=== PATIENT | female | born 1940 | race Two or more races ===

== ENCOUNTER → 2024-12-22 | Outpatient (CLI) | payer MEDICAID | END | disposition home or self-care (01) | LOC: Rad HDHVI 10:55 | PROVIDERS: ATTEND Internal Medicine Cardiovascular Disease | DX: R06.02 Shortness of breath (principal) | CPT/HCPCS: 93306 ==

== ENCOUNTER → 2024-12-29 | Outpatient (CLI) | payer MEDICAID ==
[~2024-12-29] VITALS: Ht 152.4 cm; Wt 72.6 kg
[~2024-12-29] MED LIST: ADENOSINE 61 MG in GIVE UN-DILUTED 0 ML IV ONE; ADENOSINE 90 MG/30 ML INJ IV ONE
== END | disposition home or self-care (01) ==
LOC: Rad HDHVI 08:51
PROVIDERS: ATTEND Internal Medicine Cardiovascular Disease
DX: R06.02 Shortness of breath (principal); R42 Dizziness and giddiness; R07.89 Other chest pain; R94.31 Abnormal electrocardiogram [ECG] [EKG]; R60.0 Localized edema; I10 Essential (primary) hypertension
CPT/HCPCS: 78452; 93005; A9500; J0153; 96374; 96375

== ENCOUNTER 2025-06-15 15:46 | Outpatient (CLI) | payer MEDICAID | END 2025-06-15 17:00 | disposition home or self-care (01) | LOC: Rad HDHVI 15:46 | PROVIDERS: ATTEND Internal Medicine Cardiovascular Disease | DX: I10 Essential (primary) hypertension (principal) | CPT/HCPCS: 93880 ==

== ENCOUNTER 2025-10-20 01:19 | Inpatient (IN) | payer MEDICAID ==
[~2025-10-20] VITALS: Ht 152.4 cm; Wt 77.0 kg
[2025-10-20] MEDS: SODIUM CHLORIDE 0.9% 1,000 ML IV ONE (02:35)
[2025-10-20 02:40] LABS: Hematocrit 45.9 % (36.0-46.0); Hemoglobin 15.2 g/dL (12.2-16.2); Mean Corpuscular Hemoglobin 30.1 pg (28.0-32.0); Mean Corpuscular Volume 90.9 fL (80.0-100.0); Nucleated Red Blood Cells % 0.0 %
[2025-10-20 02:47] LABS: Chloride 107 mmol/L (98-107); Potassium 4.0 mmol/L (3.5-5.1); Sodium 143 mmol/L (136-145)
[2025-10-20 02:48] LABS: Anion Gap 12 (5-15); Calcium 9.6 mg/dL (8.7-10.4); Carbon Dioxide 24 mmol/L (20-31)
[2025-10-20 02:53] LABS: BUN/Creatinine Ratio 24.2 (10.0-20.0); Blood Urea Nitrogen 22 mg/dL (9-23)
[2025-10-20 02:54] LABS: Glucose 173 mg/dL (74-106)
[2025-10-20 03:55] LABS: INR 1.01 (0.9-1.15); Prothrombin Time 10.7 sec (9.3-11.8)
--- NOTE | 2025-10-20 04:34 | DVH ---
CHEST RADIOGRAPH INDICATION: Hypoxia TECHNIQUE: Single frontal view of the chest was obtained COMPARISON: XY CHEST TWO VIEWS ROUTINE on DOS: 12/17/24 FINDINGS: Lines and Tubes: None Lungs: Moderate diffuse increased prominence of the pulmonary vasculature without evidence of focal consolidation. Pleura: No effusion. No pneumothorax. Cardiomediastinal contours: Unremarkable Bones: Unremarkable IMPRESSION: 1. Moderate diffuse increased prominence of the pulmonary vasculature without evidence of focal consolidation.
[2025-10-20 04:38] LABS: Base Excess -3.7 mmol/L (-2.0-3.0)
--- NOTE | 2025-10-20 04:55 | ED.PDOC ---
History of Present Illness HPI Comments 85-year-old, Sami-speaking female is brought in by ambulance for chief complaint of syncope. Granddaughter is present at bedside. Per granddaughter, patient is complaining of chest pain, dizziness, and weakness, earlier, while at a [employer]. Patient was assisted to the bathroom and witnessed passing out. Significant history for stroke, hypertension, and thyroid disease. Patient arrived on non-rebreather after being found on 84% on room air by EMS personnel. Patient's sternal endorses on feeling weak. REVIEW OF SYSTEMS: General: No fever, no chills, or fatigue HEENT: No sore throat, no earache, no congestion, no neck pain. Cardiac: Syncope. No chest pain. No palpitations. Lungs: No shortness of breath, no cough. GI: No nausea, no vomiting, no diarrhea, no constipation, no abdominal pain : No dysuria, frequency, or urgency. No hematuria. Musculoskeletal: No joint pain , no joint swelling, no extremity edema. Skin: No rash, no itching. Neuro: Weakness. No headache or dizziness. (And as stated in HPI) PHYSICAL EXAM: General: Awake, alert and oriented. No acute distress. Skin: Skin in warm, dry and intact. Appropriate color for ethnicity. HEENT: The head is normocephalic and atraumatic. Conjunctivae are clear without exudates or hemorrhage. Sclera is non-icteric. Eyelids are normal in appearance without swelling or lesions. Oral mucosa is pink and moist Neck: The neck is supple with normal range of motion. No JVD. Cardiac: Heart rate and rhythm are normal. No murmurs, gallops, or rubs are auscultated. Respiratory: No signs of respiratory distress. Lung sounds are clear in all lobes bilaterally without rales, rhonchi, or wheezes. Abdominal: Abdomen is soft, non-tender without distention, guarding or rigidity. Bowel sounds are present and normoactive in all four quadrants. Extremities: Lower extremities without edema. Neurological: Patient appears lethargic. She responds to commands. Generally is weak but was able to move all 4 extremities, spontaneously. Chief Complaint: Syncope Time Seen by MD: 01:49 Allergies: Coded Allergies: No Known Drug Allergy (Verified Allergy, Unknown, 12/29/24) Mode of Arrival: EMS Past Medical History PAST MEDICAL HISTORY: Arthritis, HTN, Thyroid Past Medical History (Other): History of stroke Surgical History: Denies all surgeries FOUNDATION RELATIONS DIRECTOR History: Denies all FOUNDATION RELATIONS DIRECTOR Hx Family History Family History: Unknown Social History Smoker: Non-Smoker Alcohol: Denies ETOH Use Drugs: Denies Drug Use Lives In: Home Was a procedure done? Was a procedure done?: No Differential Dx Considerations may include: Differential diagnoses considered include but are not limited to cardiac structural disease, arrhythmia, acute coronary syndrome, orthostasis, pulmonary embolism, dissection, seizure, basilar stroke, other. X-Ray, Labs, Meds, VS Vital Signs Date Time Temp Pulse Resp B/P (MAP) Pulse Ox O2 Delivery O2 Flow Rate FiO2 10/20/25 04:00 67 16 115/71 (86) 97 10/20/25 01:50 Non-Rebreather 15 N/A 10/20/25 01:50 97.7 92 19 105/60 (75) 95 97.7 10/20/25 01:30 96.4 88 16 161/68 98 96.4 Lab Test 10/20/25 05:06 10/20/25 04:18 10/20/25 03:22 10/20/25 02:04 Range/Units Sodium Level 143 143 136-145 mmol/L Potassium Level 4.2 4.0 3.5-5.1 mmol/L Chloride Level 110 H 107 98-107 mmol/L Carbon Dioxide Level 23 24 20-31 mmol/L Anion Gap 10 12 5-15 Blood Urea Nitrogen 27 H 22 9-23 mg/dL Creatinine 0.82 0.91 0.550-1.02 mg/dL Glomerular Filtration Rate Calc 70 62 >90 mL/min BUN/Creatinine Ratio 32.9 H 24.2 H 10.0-20.0 Serum Glucose 131 H 173 H 74-106 mg/dL Calcium Level 8.8 9.6 8.7-10.4 mg/dL Total Bilirubin 0.7 0.2-1.0 mg/dL Aspartate Amino Transferase (AST) 29 13-40 U/L Alanine Aminotransferase (ALT) 31 7-40 U/L Alkaline Phosphatase 109 46-116 U/L Troponin I High Sensitivity 4 5 5 </=34 ng/L Total Protein 5.9 5.7-8.2 g/dL Albumin 3.7 3.2-4.8 g/dL Thyroid Stimulating Hormone (TSH) 5.24 H 0.55-4.78 uIU/mL Blood Gas Specimen Type Arterial Blood Gas Sample Site Right radial Blood Gas Patient Temperature 37.0 Arterial Blood Date Drawn [id number] Arterial Blood pH 7.443 7.350-7.450 Arterial Blood Partial Pressure CO2 28.3 L 32.0-45.0 mmHg Arterial Blood Partial Pressure O2 52.8 *L 83.0-108.0 mmHg Arterial Blood HCO3 18.9 L 21.0-28.0 mmol/L Arterial Blood Oxygen Saturation 86.4 L 94.0-98.0 % Arterial Blood Base Excess -3.7 L -2.0-3.0 mmol/L Arterial Blood Oxyhemoglobin 85.4 L 94.0-98.0 % Arterial Blood Carboxyhemoglobin 0.8 0.5-1.5 % Arterial Blood Methemoglobin 0.4 0.0-1.5 % Arterial Blood Deoxyhemoglobin 13.4 H 0.0-5.0 % Rodolfo Test Yes Blood Gas Total Hemoglobin 14.70 12.0-16.0 g/dL Blood Gas Modality Room air Blood Gas Spontaneous Rate 18 FiO2 % 21.0 Blood Gas Critical Value Read Back yes Blood Gas Notified Whom md. france molina Blood Gas Notified Time [id number] Blood Gas Notified By bank boss tyson rehman White Blood Count 12.2 H 4.4-10.8 10^3/uL Red Blood Count 5.05 4.0-5.20 10^6/uL Hemoglobin 15.2 12.2-16.2 g/dL Hematocrit 45.9 36.0-46.0 % Mean Corpuscular Volume 90.9 80.0-100.0 fL Mean Corpuscular Hemoglobin 30.1 28.0-32.0 pg Mean Corpuscular Hemoglobin Concent 33.1 32.0-36.0 g/dL Red Cell Distribution Width 16.2 H 11.8-14.3 % Platelet Count 219 140-450 10^3/uL Mean Platelet Volume 10.4 6.9-10.8 fL Neutrophils (%) (Auto) 86.0 H 37.0-80.0 % Lymphocytes (%) (Auto) 10.0 10.0-50.0 % Monocytes (%) (Auto) 3.4 0.0-12.0 % Eosinophils (%) (Auto) 0.4 0.0-7.0 % Basophils (%) (Auto) 0.2 0.0-2.0 % Neutrophils # (Auto) 10.5 H 1.6-8.6 10 ^3/uL Lymphocytes # (Auto) 1.2 0.4-5.4 10 ^3/uL Monocytes # (Auto) 0.4 0-1.3 10 ^3/uL Eosinophils # (Auto) 0 0-0.8 10 ^3/uL Basophils # (Auto) 0 0-0.2 10 ^3/uL Nucleated Red Blood Cells 0.0 % Prothrombin Time 10.7 9.3-11.8 sec Prothrombin Time INR 1.01 0.9-1.15 D-Dimer, Quantitative 0.58 H 0.0-0.49 mg/L FEU Hemoglobin A1c 6.0 H <5.7 % A1C B-Type Natriuretic Peptide 66.91 0-100 pg/mL Current Medications Medications (Trade) Dose Ordered Sig/Ryan Route Start Time Stop Time Status Last Admin Sodium Chloride 1,000 ml @ 1,000 mls/hr Q1H ONCE IV 10/20/25 02:00 10/20/25 02:59 DC 10/20/25 02:35 Aspirin 162 mg ONCE ONCE PO 10/20/25 05:30 10/20/25 05:35 DC 10/20/25 05:53 Ceftriaxone Sodium 50 ml @ 100 mls/hr ONCE ONCE IV 10/20/25 05:30 10/20/25 06:00 DC 10/20/25 05:53 [place] [id number] Ph: [phone] DIAGNOSTIC IMAGING Diagnostic Imaging Report : [id number] Signed PATIENT: JACQUES SHAFFER ACCT: [id number] UNIT: [id number] : 1940 LOC: ER ROOM / BED: / AGE / SEX: 85 / F ADM STATUS: REG ER SERVICE [id number] ORDERING PHYSICIAN: LAXMI MOLINA MD PROCEDURE(s): CXR1 - CHEST XRAY 1 VIEW REASON: Hypoxia ORDER NUMBER(s): [id number], ACCESSION NUMBER(s): [id number] CHEST RADIOGRAPH INDICATION: Hypoxia TECHNIQUE: Single frontal view of the chest was obtained COMPARISON: XY CHEST TWO VIEWS ROUTINE on DOS: 12/17/24 FINDINGS: Lines and Tubes: None Lungs: Moderate diffuse increased prominence of the pulmonary vasculature without evidence of focal consolidation. Pleura: No effusion. No pneumothorax. Cardiomediastinal contours: Unremarkable Bones: Unremarkable IMPRESSION: 1. Moderate diffuse increased prominence of the pulmonary vasculature without evidence of focal consolidation. ATED BY: ROBBY GARRIDO MD DICTATED DATE/TIME: 10/20/25430 SIGNED BY: ROBBY GARRIDO MD SIGNED DATE/TIME: 10/20/25430 CC: Time of 1ST Reevaluation: 04:54 Reevaluation 1ST: Unchanged Patient Education/Counseling: Other (Need for hospital admission) Family Education/Counseling: Other (Need for hospital admission) SEPSIS Sepsis Screen Date sepsis recognized/suspect: Oct 20, 2025 Time Sepsis recognized/suspect: 015 Recent Procedure: No On Antibiotic Therapy: No Respiratory Rate >20: No Heart Rate >90: Yes Temp<36 C (96.8 F) or >38.3 C: No SBP <90 or MAP <65 mmHG: No New Acute Mental Status Change: No Is the patient on CPAP, BIPAP,: No Physician Orders Electrocardigram (10/20/25 01:54) Claims Attorney (10/20/25 ) Orthostatic Vital Signs (10/20/25 ) Saline Lock (10/20/25 01:54) Fall Precautions Initiated (10/20/25 01:54) Electrocardigram (10/20/25 02:54) Electrocardigram (10/20/25 04:54) Chest Xray 1 View (10/20/25 03:29) Abg W/ Co-Ox (10/20/25 04:07) Aspirin Chewable Tablet (10/20/25 10:00) Ceftriaxone 1gm/50ml (Rocephin) (10/20/25 09:00) Allergies (10/20/25 05:22) Code Status (10/20/25 05:22) Sodium Chloride Lock (Saline Lock Ns) (10/20/25 06:00) Oxygen Per Hour (10/20/25 05:22) Hydrocodone-Acet 5/325mg Tab ([place] 5/32 (10/20/25 05:30) Ondansetron Hcl (Zofran) (10/20/25 05:30) Docusate Sodium Capsule (Colace Capsule) (10/20/25 05:30) Fall Risk Precautions In Place QSHIFT (10/20/25 05:22) Complete Blood Count (10/21/25 04:00) Comprehensive Metabolic Panel (10/21/25 04:00) Cardiac Diet-2gna,Lofat,Lochol (10/20/25 Breakfast) Condition: Serious (10/20/25 05:22) Acetaminophen Tablet (Tylenol Tablet) (10/20/25 05:30) Maintain Bed Rest (10/20/25 05:22) Sequential Compression Device (10/20/25 ) Atorvastatin (Lipitor) (10/20/25 22:00) Levothyroxine Tablet (Synthroid Tablet) (10/20/25 06:00) Admit (10/20/25 05:51) Nitroglycerin Sublingual (Ntrostat Subli (10/20/25 06:00) Morphine Sulfate Injection (10/20/25 06:00) Stat Ekg For Chest Pain (10/20/25 05:51) Notify Md Of Changes From Base (10/20/25 05:51) Psychiatry Resident For 24 Hours (10/20/25 05:51) Emergency Dysrhythmia Protocol (10/20/25 05:51) Rhythm Strips Once Every Shift (10/20/25 05:51) Oxygen By Nasal Cannula (10/20/25 05:51) Ct Angio Chest Contrast (10/20/25 05:28) Vital Signs Date Time Temp Pulse Resp B/P (MAP) Pulse Ox O2 Delivery O2 Flow Rate FiO2 10/20/25 04:00 67 16 115/71 (86) 97 10/20/25 01:50 Non-Rebreather 15 N/A 10/20/25 01:50 97.7 92 19 105/60 (75) 95 97.7 10/20/25 01:30 96.4 88 16 161/68 98 96.4 Laboratory Tests Test 10/20/25 02:04 White Blood Count 12.2 10^3/uL (4.4-10.8) H Medications Medications Dose Ordered Sig/Ryan Route Start Time Stop Time Status Last Admin Dose Admin Aspirin 162 mg ONCE ONCE PO 10/20/25 05:30 10/20/25 05:35 DC 10/20/25 05:53 Ceftriaxone Sodium 50 ml @ 100 mls/hr ONCE ONCE IV 10/20/25 05:30 10/20/25 06:00 DC 10/20/25 05:53 Sodium Chloride 1,000 ml @ 1,000 mls/hr Q1H ONCE IV 10/20/25 02:00 10/20/25 02:59 DC 10/20/25 02:35 Departure 1 Departure Time of Disposition: 04:54 Impression: Primary Impression: Syncope Additional Impression: Hypoxia Disposition: ADMITTED INPATIENT Condition: Stable Comments MDM: 85-year-old female who presents to the emergency department after syncopal episode. She is found to be hypoxic (88% on room air) chest x-ray suggestive of possible congestive changes. Patient admitted to hospitalist service for further treatment, evaluation and monitoring. Extensive evaluation was performed in attempt to identify or rule out: (See differential diagnosis section) The following tests were ordered, and results were reviewed by me and discussed with patient: (See diagnostic results section) The following test were independently interpreted by me: Prothrombin time with reflux, D-dimer, troponin, EKG, BMP CBC, BNP I reviewed and agreed with the following test results read by other providers: Chest x-ray I reviewed the following notes from the pt's past medical encounters: N/A Additional information was gathered from interviewing the following independent historians: N/A Discussion of management or test interpretation with external physician/other qualified health wound care nurse: N/A Addressed [ ]one or more chronic illnesses with severe exacerbation, progression, or side effects of treatment: [ ]an acute or chronic illness that poses a threat to life or bodily function: [ ] Decision regarding hospitalization or escalation of hospital level of care: Risk and benefits of admission for further treatment of patient's condition was considered. Due to patient's current clinical condition, high risk of decline and poor outcome if discharged and need for further inpatient management and monitoring, patient will be admitted to the hospital. Drug therapy requiring intensive monitoring for toxicity: N/A Parenteral controlled substances: N/A Decision regarding elective major surgery with identified patient or procedure risk factors: N/A Decision regarding emergency major surgery: N/A Decision not to resuscitate or to de-escalate care because of poor prognosis: N/A Diagnosis or treatment significantly limited by social determinants of health: N/A Decision regarding hospitalization or escalation of hospital level of care: Risks and benefits of admission for further treatment of patient's condition was considered however due to patient's stable condition patient will be discharged to follow up closely or return to care for worsening of condition or inability to follow up. Critical Care Note Critical Care Time?: No Stability Stability form required: No Heart Score Heart Score: Heart Score Response (Comments) Value History N/A 0 EKG N/A 0 Age N/A 0 Risk Factors N/A 0 Troponin N/A 0 Total 0 I personally scribed for LAXMI MOLINA MD ([email or web address]) on 10/20/25 at 06:31. Electronically submitted by Larry Tsang ([email or web address]). LAXMI MOLINA MD Oct 20, 2025 04:55
[2025-10-20] MEDS ORDERED: ONDANSETRON HCL 4 MG/2 ML VIAL IV PRN (05:30)
[2025-10-20] MEDS ORDERED: HYDROcodone-ACET 5/325MG TAB PO PRN (05:30)
[2025-10-20] MEDS ORDERED: IPRATROPIUM BROM 0.5 MG/2.5ML INH SOL NEB PRN (05:30)
[2025-10-20] MEDS ORDERED: ACETAMINOPHEN 325 MG TAB PO PRN (05:30)
[2025-10-20] MEDS ORDERED: ALBUTEROL SULF 2.5 MG/0.5ML(0.5%) NEB SOLN NEB PRN (05:30)
[2025-10-20] MEDS ORDERED: DOCUSATE SOD 100 MG CAP PO PRN (05:30)
--- NOTE | 2025-10-20 05:52 | DVHHP2 ---
History of Present Illness Reason for Visit: Syncope History of Present Illness The patient is a 85-year-old female with past medical history of hypothyroidism, stroke, hypertension, diabetes mellitus, and arthritis who presented to [facility] ED for evaluation of syncopal episode. As reported by granddaughter, patient filled dizziness, complaining of chest pain, generalized weakness while at [place] [employer]. Patient was assisted to the bathroom and witnessed passing out. When EMS arrived on the scene, patient was awake, O2 saturation was 83% and was placed on non-rebreather EN route to our facility ED. Patient was seen and evaluated in the ED, laboratory data shows WBC 12.2, platelets 219, sodium 143, potassium 4.0, BUN 22, creatinine 0.91, GFR 62, glucose 173, hemoglobin A1c 6.0, D-dimer 0.58, TSH 5.24, calcium 9.6, BNP 66.91, blood pressure 105/60, heart rate 92, temperature 97.7 F, O2 saturation 95% on oxygen. CT Angiography showed no pulmonary embolism, no acute thoracic finding. Please see medication orders section in the computer. On my assessment, patient denied chest pain, no headache, dizziness, diaphoresis, currently on oxygen, no diarrhea, nausea, vomiting, fever, no chills. Patient was admitted for further evaluation and medical management. Past Medical History DM, Arthritis, HTN, Thyroid, Stroke Past Surgical History Denies all surgeries Family History Reviewed, noncontributory to the management of this case. Past Social History The patient lives at home, denies smoking, alcohol or illicit drugs abuse. Review of Systems Constitutional: Yes: Weakness; No: Fever, Chills, Sweats, Malaise, Other Eyes: No: Pain, Vision change, Conjunctivae inflammation, Eyelid inflammation, Other, Redness ENT: No: Ear pain, Ear discharge, Nose pain, Nose discharge, Nose congestion, Mouth pain, Mouth swelling, Throat pain, Throat swelling, Other Respiratory: No: Cough, Dry, Shortness of breath, SOB with excertion, Wheezing, Hemoptysis, Pleuritic Pain, Sputum, Wheezing, Other Cardiovascular: Other (Syncope); No: Chest Pain, Palpitations, Orthopnea, Paroxysmal Noc. Dyspnea, Edema, Lt Headedness Gastrointestinal: No: Nausea, Vomiting, Abdominal Pain, Diarrhea, Constipation, Melena, Hematochezia, Other Genitourinary: No Dysuria, No Frequency, No Incontinence, No Hematuria, No Retention, No Other Musculoskeletal: No: other, neck pain, shoulder pain, arm pain, back pain, hand pain, leg pain, foot pain Skin: No: Rash, Lesions, Jaundice, Bruising, Other Neurological: No: Weakness, Numbness, Incoordination, Change in speech, Confusion, Seizures, Other Allergies: Coded Allergies: No Known Drug Allergy (Verified Allergy, Unknown, 12/29/24) Medications Current Medications Medications Dose Ordered Sig/Ryan Route Start Time Stop Time Status Last Admin Dose Admin Aspirin 81 mg DAILY PO 10/20/25 10:00 Ceftriaxone Sodium 50 ml @ 100 mls/hr DAILY@09 IV 10/20/25 09:00 Albuterol 2.5 mg Q4HPRN PRN NEB 10/20/25 05:30 Cancel Ipratropium [place] 0.5 mg Q4HPRN PRN NEB 10/20/25 05:30 Cancel Sodium Chloride 10 ml Q8HR IV 10/20/25 06:00 Acetaminophen/ Hydrocodone Bitart 1 tab Q4HP PRN PO 10/20/25 05:30 Ondansetron HCl 4 mg Q4HP PRN IV 10/20/25 05:30 Docusate Sodium 100 mg BIDPRN PRN PO 10/20/25 05:30 Acetaminophen 650 mg Q6HP PRN PO 10/20/25 05:30 Atorvastatin Calcium 20 mg HS PO 10/20/25 22:00 Levothyroxine Sodium 50 mcg QAM@0600 PO 10/20/25 06:00 Exam Vital Signs Vital Signs Date Time Temp Pulse Resp B/P (MAP) Pulse Ox O2 Delivery O2 Flow Rate FiO2 10/20/25 01:50 Non-Rebreather 15 N/A 10/20/25 01:50 97.7 92 19 105/60 (76) 95 97.7 General Appearance: Alert, Oriented X3, Cooperative, No acute distress HEENT: Atraumatic, PERRLA, EOMI, Mucous membr. moist/pink Respiratory: Clear to auscultation, Normal air movement Cardiovascular: Regular rate, Normal S1, Normal S2, No murmurs Abdominal: Normal bowel sounds, Soft, No tenderness, No hepatospenomegaly, No masses Extremities: No clubbing, No cyanosis, No edema, Normal pulses, No tenderness/swelling Skin: No rashes, No significant lesion Neuro: Normal speech, Normal tone, Sensation intact, Cranial nerves 3-12 NL, Reflexes 2+, Other (Generalized weakness) Psych/Mental Status: Mental status NL, Mood NL Labs/Xrays Labs Test 10/20/25 05:06 10/20/25 04:18 10/20/25 02:04 Range/Units Troponin I High Sensitivity 4 </=34 ng/L Blood Gas Specimen Type Arterial Blood Gas Sample Site Right radial Blood Gas Patient Temperature 37.0 Arterial Blood Date Drawn [id number] Arterial Blood pH 7.443 7.350-7.450 Arterial Blood Partial Pressure CO2 28.3 L 32.0-45.0 mmHg Arterial Blood Partial Pressure O2 52.8 *L 83.0-108.0 mmHg Arterial Blood HCO3 18.9 L 21.0-28.0 mmol/L Arterial Blood Oxygen Saturation 86.4 L 94.0-98.0 % Arterial Blood Base Excess -3.7 L -2.0-3.0 mmol/L Arterial Blood Oxyhemoglobin 85.4 L 94.0-98.0 % Arterial Blood Carboxyhemoglobin 0.8 0.5-1.5 % Arterial Blood Methemoglobin 0.4 0.0-1.5 % Arterial Blood Deoxyhemoglobin 13.4 H 0.0-5.0 % Rodolfo Test Yes Blood Gas Total Hemoglobin 14.70 12.0-16.0 g/dL Blood Gas Modality Room air Blood Gas Spontaneous Rate 18 FiO2 % 21.0 Blood Gas Critical Value Read Back yes Blood Gas Notified Whom md. france molina Blood Gas Notified Time [id number] Blood Gas Notified By visitor service assistant tyson rehman White Blood Count 12.2 H 4.4-10.8 10^3/uL Red Blood Count 5.05 4.0-5.20 10^6/uL Hemoglobin 15.2 12.2-16.2 g/dL Hematocrit 45.9 36.0-46.0 % Mean Corpuscular Volume 90.9 80.0-100.0 fL Mean Corpuscular Hemoglobin 30.1 28.0-32.0 pg Mean Corpuscular Hemoglobin Concent 33.1 32.0-36.0 g/dL Red Cell Distribution Width 16.2 H 11.8-14.3 % Platelet Count 219 140-450 10^3/uL Mean Platelet Volume 10.4 6.9-10.8 fL Neutrophils (%) (Auto) 86.0 H 37.0-80.0 % Lymphocytes (%) (Auto) 10.0 10.0-50.0 % Monocytes (%) (Auto) 3.4 0.0-12.0 % Eosinophils (%) (Auto) 0.4 0.0-7.0 % Basophils (%) (Auto) 0.2 0.0-2.0 % Neutrophils # (Auto) 10.5 H 1.6-8.6 10 ^3/uL Lymphocytes # (Auto) 1.2 0.4-5.4 10 ^3/uL Monocytes # (Auto) 0.4 0-1.3 10 ^3/uL Eosinophils # (Auto) 0 0-0.8 10 ^3/uL Basophils # (Auto) 0 0-0.2 10 ^3/uL Nucleated Red Blood Cells 0.0 % Prothrombin Time 10.7 9.3-11.8 sec Prothrombin Time INR 1.01 0.9-1.15 D-Dimer, Quantitative 0.58 H 0.0-0.49 mg/L FEU B-Type Natriuretic Peptide 66.91 0-100 pg/mL PATIENT: JACQUES SHAFFERACCT: [id number] UNIT: [id number] : 1940 LOC: OVERFLOW ROOM / BED: [address] [place] [address] AGE / SEX: 85 / F ADM STATUS: ADM IN SERVICE 0528 ORDERING PHYSICIAN: ALEA DESHPANDE DNP PROCEDURE(s): CTACH - CT ANGIO CHEST CONTRAST REASON: Elevated D-dimer ORDER NUMBER(s): [id number], ACCESSION NUMBER(s): [id number] CTA Chest with intravenous contrast INDICATION: Elevated D-dimer COMPARISON: XY CHEST XRAY 1 VIEW on DOS: 10/20/25, XY CHEST TWO VIEWS ROUTINE on DOS: 12/17/24 TECHNIQUE: Multidetector spiral CTA of the chest was performed of the chest with intravenous contrast. PULMONARY ANGIOGRAPHY PROTOCOL was utilized using a bolus- tracking technique centered on the main pulmonary artery. Axial, coronal and sagittal multiplanar and MIP reformats were performed. Radiation Dose : 1. Chest: CTDI volume is 22.14 mGy. Dose-length product is 679.76 mGy*cm The dose indicators for CT are the volume Computed Tomography (CT) Dose Index (CTDIvol) and the Dose Length Product (DLP), and are measured in units of mGy and mGy-cm, respectively. These indicators are not patient dose, but values generated from the CT scanner acquisition factors. The report includes radiation exposure data for exposures received during this examination. FINDINGS: Pulmonary artery: No pulmonary embolism. Lower neck: Normal thyroid. Lungs: No focal consolidation, pleural effusion or pneumothorax. Moderate posterior bibasilar atelectasis. Heart/Vascular Structures: Normal heart size. No pericardial effusion. Atheroscl erotic vascular calcifications. Lymph Nodes: No adenopathy Musculoskeletal: No acute osseous abnormality. Soft tissues: Normal. Upper abdomen: 2.3 cm calcified gallstone within the neck of the gallbladder. Limited portions of the upper abdomen are otherwise unremarkable. IMPRESSION: 1. No pulmonary embolism. 2. No acute thoracic finding. 3. Cholelithiasis. ORDERING PHYSICIAN: LAXMI MOLINA MD PROCEDURE(s): CXR1 - CHEST XRAY 1 VIEW REASON: Hypoxia ORDER NUMBER(s): [id number], ACCESSION NUMBER(s): [id number] CHEST RADIOGRAPH INDICATION: Hypoxia TECHNIQUE: Single frontal view of the chest was obtained COMPARISON: XY CHEST TWO VIEWS ROUTINE on DOS: 12/17/24 FINDINGS: Lines and Tubes: None Lungs: Moderate diffuse increased prominence of the pulmonary vasculature without evidence of focal consolidation. Pleura: No effusion. No pneumothorax. Cardiomediastinal contours: Unremarkable Bones: Unremarkable IMPRESSION: 1. Moderate diffuse increased prominence of the pulmonary vasculature without evidence of focal consolidation. SEPSIS Sepsis Screen Date sepsis recognized/suspect: Oct 20, 2025 Time Sepsis recognized/suspect: 0155 Recent Procedure: No On Antibiotic Therapy: No Respiratory Rate >20: No Heart Rate >90: Yes Temp<36 C (96.8 F) or >38.3 C: No SBP <90 or MAP <65 mmHG: No New Acute Mental Status Change: No Is the patient on CPAP, BIPAP,: No Physician Orders Electrocardigram (10/20/25 01:54) Coal Cager (10/20/25 ) Orthostatic Vital Signs (10/20/25 ) Saline Lock (10/20/25 01:54) Fall Precautions Initiated (10/20/25 01:54) Electrocardigram (10/20/25 02:54) Electrocardigram (10/20/25 04:54) Chest Xray 1 View (10/20/25 03:29) Abg W/ Co-Ox (10/20/25 04:07) Complete Blood Count (10/20/25 05:22) Comprehensive Metabolic Panel (10/20/25 05:22) Aspirin Chewable Tablet (10/20/25 10:00) Hemoglobin A1c (10/20/25 05:22) Ceftriaxone 1gm/50ml (Rocephin) (10/20/25 09:00) Ceftriaxone 1gm/50ml (Rocephin) (10/20/25 05:30) Allergies (10/20/25 05:22) Code Status (10/20/25 05:22) Sodium Chloride Lock (Saline Lock Ns) (10/20/25 06:00) Oxygen Per Hour (10/20/25 05:22) Hydrocodone-Acet 5/325mg Tab ([place] 5/32 (10/20/25 05:30) Ondansetron Hcl (Zofran) (10/20/25 05:30) Docusate Sodium Capsule (Colace Capsule) (10/20/25 05:30) Fall Risk Precautions In Place QSHIFT (10/20/25 05:22) Complete Blood Count (10/21/25 04:00) Comprehensive Metabolic Panel (10/21/25 04:00) Cardiac Diet-2gna,Lofat,Lochol (10/20/25 Breakfast) Condition: Serious (10/20/25 05:22) Acetaminophen Tablet (Tylenol Tablet) (10/20/25 05:30) Maintain Bed Rest (10/20/25 05:22) Sequential Compression Device (10/20/25 ) Atorvastatin (Lipitor) (10/20/25 22:00) Levothyroxine Tablet (Synthroid Tablet) (10/20/25 06:00) Thyroid Stimulating Hormone (10/20/25 05:22) Chest Without Contrast (10/20/25 05:28) Vital Signs Date Time Temp Pulse Resp B/P (MAP) Pulse Ox O2 Delivery O2 Flow Rate FiO2 10/20/25 01:50 Non-Rebreather 15 N/A 10/20/25 01:50 97.7 92 19 105/60 (75) 95 97.7 10/20/25 01:30 96.4 88 16 161/68 98 96.4 Laboratory Tests Test 10/20/25 02:04 White Blood Count 12.2 10^3/uL (4.4-10.8) H Medications Medications Dose Ordered Sig/Ryan Route Start Time Stop Time Status Last Admin Dose Admin Sodium Chloride 1,000 ml @ 1,000 mls/hr Q1H ONCE IV 10/20/25 02:00 10/20/25 02:59 DC 10/20/25 02:35 1,000 MLS/HR Assessment/Plan Assessment/Plan Syncope Acute respiratory distress Elevated D-dimer Diabetes mellitus with hyperglycemia Leukocytosis, unspecified Generalized weakness Plan 1. Admit to telemetry unit 2. Breathing treatment 3. Pain control management 4. Management of fluids and electrolytes 5. Consultation for hospitalist 6. Diagnostic tests CT Angiography 7. DVT prophylaxis-on aspirin 8. Repeat labs CBC, CMP in a.m. 9. Continue with current medical management 10. Treatment plan discussed with patient and RN. Patient verbalized understanding. Plan discussed with: Patient, Other (RN) My Orders Orders - ALEA DESHPANDE DNP Procedure Category Date Status Time Complete Blood Count LAB 10/20/25 Logged 05:22 Comprehensive LAB 10/20/25 In Process Metabolic Panel 05:22 Aspirin Chewable PHA 10/20/25 In Process Tablet 10:00 Hemoglobin A1c LAB 10/20/25 In Process 05:22 Ceftriaxone 1gm/50ml PHA 10/20/25 In Process (Rocephin) 09:00 Ceftriaxone 1gm/50ml PHA 10/20/25 In Process (Rocephin) 05:30 Allergies [place] 10/20/25 In Process 05:22 Code Status CODE 10/20/25 Transmitted 05:22 Sodium Chloride Lock PHA 10/20/25 In Process (Saline Lock Ns) 06:00 Oxygen Per Hour RT 10/20/25 Transmitted 05:22 Hydrocodone-Acet PHA 10/20/25 In Process 5/325mg Tab ([place] 05:30 Ondansetron Hcl PHA 10/20/25 In Process (Zofran) 05:30 Docusate Sodium PHA 10/20/25 In Process Capsule (Colace 05:30 Fall Risk Precautions [place] 10/20/[address] 05:22 Complete Blood Count LAB 10/21/25 Verified 04:00 Comprehensive LAB 10/21/25 Verified Metabolic Panel 04:00 Cardiac DIET 10/20/25 Transmitted Diet-2gna,Lofat,Lochol Breakfast Condition: Serious [place] 10/20/25 In Process 05:22 Acetaminophen Tablet PHA 10/20/25 In Process (Tylenol Tablet) 05:30 Maintain Bed Rest [place] 10/20/25 In Process 05:22 Sequential [place] 10/20/25 In Process Compression Device Atorvastatin (Lipitor) PHA 10/20/25 In Process 22:00 Levothyroxine Tablet PHA 10/20/25 In Process (Synthroid Tablet) 06:00 Thyroid Stimulating LAB 10/20/25 In Process Hormone 05:[address] 10/20/25 Logged 05:28 Problem List: (1) Syncope (2) Acute respiratory distress (3) Elevated d-dimer (4) Diabetes mellitus with hyperglycemia (5) Leukocytosis, unspecified (6) Generalized weakness Date of Service: Oct 20, 2025 Billing Provider: ALEA DESHPANDE DNP Common Visit Codes: [id number] INP/OBS CARE (HIGH) ALEA DESHPANDE DNP Oct 20, 2025 05:52
[2025-10-20] MEDS: LEVOTHYROXINE SODIUM 50 MCG TAB PO SCH (05:57)
[2025-10-20 05:58] LABS: Alanine Aminotransferase 31 U/L (7-40); Albumin 3.7 g/dL (3.2-4.8); Alkaline Phosphatase 109 U/L (46-116); Anion Gap 10 (5-15); BUN/Creatinine Ratio 32.9 (10.0-20.0); Calcium 8.8 mg/dL (8.7-10.4); Carbon Dioxide 23 mmol/L (20-31); Potassium 4.2 mmol/L (3.5-5.1); Sodium 143 mmol/L (136-145); Total Protein 5.9 g/dL (5.7-8.2)
[2025-10-20 05:59] LABS: Bilirubin, Total 0.7 mg/dL (0.2-1.0); Blood Urea Nitrogen 27 mg/dL (9-23); Chloride 110 mmol/L (98-107); Glucose 131 mg/dL (74-106)
[2025-10-20] MEDS: IOHEXOL 350 MG/ML 100ML IJ ONE (05:59)
[2025-10-20] MEDS ORDERED: MORPHINE SULFATE INJ 2 MG/ml SYRG IV PRN (06:00)
[2025-10-20] MEDS ORDERED: NITROGLYCERIN 0.4 MG SL TAB SL PRN (06:00)
[2025-10-20] MEDS: SODIUM CHLOR 0.9% PF (SALINE LOCK) 10ML VIAL/SYR IV SCH (06:00)
[2025-10-20 06:11] LABS: Hematocrit 42.4 % (36.0-46.0); Hemoglobin 14.0 g/dL (12.2-16.2); Mean Corpuscular Hemoglobin 30.2 pg (28.0-32.0); Mean Corpuscular Volume 91.5 fL (80.0-100.0); Nucleated Red Blood Cells % 0.1 %
--- NOTE | 2025-10-20 06:27 | DVH ---
CTA Chest with intravenous contrast INDICATION: Elevated D-dimer COMPARISON: XY CHEST XRAY 1 VIEW on DOS: 10/20/25, XY CHEST TWO VIEWS ROUTINE on DOS: 12/17/24 TECHNIQUE: Multidetector spiral CTA of the chest was performed of the chest with intravenous contrast. PULMONARY ANGIOGRAPHY PROTOCOL was utilized using a bolus- tracking technique centered on the main pulmonary artery. Axial, coronal and sagittal multiplanar and MIP reformats were performed. Radiation Dose : 1. Chest: CTDI volume is 22.14 mGy. Dose-length product is 679.76 mGy*cm The dose indicators for CT are the volume Computed Tomography (CT) Dose Index (CTDIvol) and the Dose Length Product (DLP), and are measured in units of mGy and mGy-cm, respectively. These indicators are not patient dose, but values generated from the CT scanner acquisition factors. The report includes radiation exposure data for exposures received during this examination. FINDINGS: Pulmonary artery: No pulmonary embolism. Lower neck: Normal thyroid. Lungs: No focal consolidation, pleural effusion or pneumothorax. Moderate posterior bibasilar atelectasis. Heart/Vascular Structures: Normal heart size. No pericardial effusion. Atherosclerotic vascular calcifications. Lymph Nodes: No adenopathy Musculoskeletal: No acute osseous abnormality. Soft tissues: Normal. Upper abdomen: 2.3 cm calcified gallstone within the neck of the gallbladder. Limited portions of the upper abdomen are otherwise unremarkable. IMPRESSION: 1. No pulmonary embolism. 2. No acute thoracic finding. 3. Cholelithiasis.
[2025-10-20 07:30] VITALS: PULSE 68; RESP 14; O2SAT 96
[2025-10-20] MEDS ORDERED: DEXTROSE (50%) 50ML SYRG IV PRN (11:00)
[2025-10-20] MEDS: InsuLIN REG 1unit/0.01ml Soln (100units/ml) SC SCH (11:30)
[2025-10-20] MEDS: ACCU-CHEK COMFORT CURVE STRIP VI SCH (11:30)
[2025-10-20 11:50] VITALS: BP 121/76; PULSE 74; RESP 18; TEMP 97.3; O2SAT 95
[2025-10-20 12:00] LABS: Urine Protein, UAD Negative (Negative)
[2025-10-20 12:09] VITALS: BP 121/76; PULSE 74; RESP 16; TEMP 97.3; O2SAT 95
--- NOTE | 2025-10-20 13:10 | DVHPN2 ---
Changes from previous H/P or p: No Changes Eyes: No Pain, No Vision change, No Conjunctivae inflammation, No Eyelid inflammation, No Other, No Redness ENT: No Ear pain, No Ear discharge, No Nose pain, No Nose discharge, No Nose congestion, No Mouth pain, No Mouth swelling, No Throat pain, No Throat swelling, No Other Cardiovascular: No Chest Pain, No Palpitations, No Orthopnea, No Paroxysmal Noc. Dyspnea, No Edema, No Lt Headedness; Other (Syncope) Respiratory: No Cough, No Dry, No Shortness of breath, No SOB with excertion, No Wheezing, No Hemoptysis, No Pleuritic Pain, No Sputum, No Other Gastrointestinal: No Nausea, No Vomiting, No Abdominal Pain, No Diarrhea, No Constipation, No Melena, No Hematochezia, No Other Genitourinary: No Dysuria, No Frequency, No Incontinence, No Hematuria, No Retention, No Other Musculoskeletal: No other, No neck pain, No shoulder pain, No arm pain, No back pain, No hand pain, No leg pain, No foot pain Skin: No Rash, No Lesions, No Jaundice, No Bruising, No Other Objective Vitals Vital Signs Date Time Temp Pulse Resp B/P (MAP) Pulse Ox O2 Delivery O2 Flow Rate FiO2 10/20/25 12:09 97.3 74 16 121/76 (91) 95 97.3 10/20/25 07:30 Nasal Cannula* 2 28 Medications Current Medications Medications Dose Ordered Sig/Ryan Route Start Time Stop Time Status Last Admin Dose Admin Aspirin 81 mg DAILY PO 10/20/25 10:00 Ceftriaxone Sodium 50 ml @ 100 mls/hr DAILY@09 IV 10/20/25 09:00 Albuterol 2.5 mg Q4HPRN PRN NEB 10/20/25 05:30 Cancel Ipratropium [place] 0.5 mg Q4HPRN PRN NEB 10/20/25 05:30 Cancel Sodium Chloride 10 ml Q8HR IV 10/20/25 06:00 10/20/25 06:00 10 ML Acetaminophen/ Hydrocodone Bitart 1 tab Q4HP PRN PO 10/20/25 05:30 Ondansetron HCl 4 mg Q4HP PRN IV 10/20/25 05:30 Docusate Sodium 100 mg BIDPRN PRN PO 10/20/25 05:30 Acetaminophen 650 mg Q6HP PRN PO 10/20/25 05:30 Atorvastatin Calcium 20 mg HS PO 10/20/25 22:00 Levothyroxine Sodium 50 mcg QAM@0600 PO 10/20/25 06:00 10/20/25 05:57 50 MCG Nitroglycerin 0.4 mg Q5MINP PRN SL 10/20/25 06:00 Morphine Sulfate 2 mg Q30M PRN IV 10/20/25 06:00 Diagnostic Test (Pha) 1 strip ACHS 10/20/25 11:30 Insulin Human Regular ACHS SC 10/20/25 11:30 Dextrose 50 ml UD PRN IV 10/20/25 11:00 Laboratory Results Laboratory Tests 10/20/25 05:06 10/20/25 05:54 Chemistry Test 10/20/25 02:04 10/20/25 05:06 Calcium Level 9.6 mg/dL (8.7-10.4) 8.8 mg/dL (8.7-10.4) Albumin 3.7 g/dL (3.2-4.8) Total Protein 5.9 g/dL (5.7-8.2) Coagulation Test 10/20/25 02:04 Prothrombin Time 10.7 sec (9.3-11.8) Prothrombin Time INR 1.01 (0.9-1.15) D-Dimer, Quantitative 0.58 mg/L FEU (0.0-0.49) H Cardiac Markers Test 10/20/25 02:04 B-Type Natriuretic Peptide 66.91 pg/mL (0-100) LFT Test 10/20/25 05:06 Alanine Aminotransferase (ALT) 31 U/L (7-40) Alkaline Phosphatase 109 U/L (46-116) Aspartate Amino Transferase (AST) 29 U/L (13-40) Total Bilirubin 0.7 mg/dL (0.2-1.0) HgA1c, TSH Test 10/20/25 02:04 10/20/25 05:06 Hemoglobin A1c 6.0 % A1C (<5.7) H Thyroid Stimulating Hormone (TSH) 5.24 uIU/mL (0.55-4.78) H Urinalysis Test 10/20/25 10:00 Urine Color Light-yellow (Yellow) Urine Clarity Clear (Clear) Urine pH 5.5 (5.0-9.0) Urine Specific [place] 1.042 (1.001-1.035) Urine Protein Negative (Negative) Urine Ketones Negative (Negative) Urine Blood Negative /uL (Negative) Urine Nitrite Negative (Negative) Urine Bilirubin Negative (Negative) Urine Urobilinogen Normal mg/dL (Negative) Urine Leukocyte Esterase Negative /uL (Negative) Urine RBC 1 /hpf (0 - 4) Urine Microscopic WBC 1 /HPF (0-5) Urine Squamous Epithelial Cells Few /hpf (<5) Urine Bacteria None seen /hpf (None Seen) Urine Glucose Normal mg/dL (Normal) Blood Gas Results Test 10/20/25 04:18 Arterial Blood pH 7.443 (7.350-7.450) FiO2 % 21.0 Labs and/or images reviewed: Labs reviewed by me, Image(s) reviewed by me Assessment/Plan Assessment/Plan Syncope unknown etiology: CT head carotid ultrasound: Echocardiogram Type 2 diabetes: Insulin sliding scale Elevated D-dimer 5.4 PE ruled out Generalized weakness Hypertension Hypothyroidism History of stroke Time spent 55 minutes Patient is full code Advanced care time 20 minutes Plan discussed with: Patient My Orders Orders - ZAHRA KONG MD Procedure Category Date Status Time Echo 2d Mode Cardiac US 10/20/25 Logged DOP 13:05 Carotid Duplx W Color US 10/20/25 Logged DOP 13:[address] 10/20/25 Verified 13:06 Date of Service: Oct 20, 2025 Billing Provider: ZAHRA KONG MD Common Visit Codes: [id number] INP/OBS CARE(HIGH) Secondary Visit Codes: [id number] CARE PLAN 30 MINUTES ZAHRA KONG MD Oct 20, 2025 13:10
--- NOTE | 2025-10-20 14:13 | DVH ---
CLINICAL HISTORY: Syncope TECHNIQUE: Curtis-scale, Color and Duplex Doppler imaging of the bilateral carotid systems was performed. WID: COMPARISON: US CAROTID DUPLX W COLOR DOP on DOS: 06/15/25 FINDINGS: Right Carotid system: No significant atherosclerotic plaque. Left Carotid system: No significant atherosclerotic plaque. The right and left common carotid and external carotid arteries are patent. There is antegrade flow in both vertebral arteries and external carotid arteries. The following flow velocities were obtained (cm/sec). Right Carotid System: ICA PSV: 82 ICA/CCA Ratio: 1.2 Left Carotid System: ICA PSV: 62 ICA/CCA Ratio: 1.4 IMPRESSION: No significant atherosclerotic plaque or hemodynamically significant stenoses. Estimation of carotid stenosis is based on velocity parameters that correlate the residual internal carotid diameter with that of the more distal vessel in accordance with the [place] Symptomatic Carotid Endarterectomy Trial (NASCET).
--- NOTE | 2025-10-20 15:18 | DVH ---
CLINICAL HISTORY: Syncope TECHNIQUE: Helical scanning was performed of the head from the skull base to the vertex. Multiplanar reconstructions were performed. This exam was performed according to our departmental dose optimization program. Up-to-date CT equipment and radiation dose reduction techniques are utilized as appropriate. CTDI 52 DLP 920 COMPARISON: None FINDINGS: There is no evidence for acute intracranial hemorrhage, acute ischemic changes, mass, mass effect, or extra-axial fluid collection. There is no hydrocephalus or midline shift. There is no effacement of the cerebral sulci and basal subarachnoid cisterns. The tan-white matter differentiation is well maintained. There is mild brain volume loss. Small old left frontal lobe infarct. Is an old small left superior cerebellar infarct. The imaged paranasal sinuses are clear. IMPRESSION: NO ACUTE INTRACRANIAL ABNORMALITY SEEN.
[2025-10-20 17:00] VITALS: BP 142/73; PULSE 77; RESP 18; TEMP 97.1; O2SAT 93
--- NOTE | 2025-10-20 19:55 | DVHSR ---
APPROVED REPORT EXAM: LIMITED Two-dimensional and M-mode echocardiogram with Doppler and color Doppler. Blood Pressure: 121/76 mmHg INDICATION Syncope RISK FACTORS Obesity: Height: 5'0, Weight: 150 DIMENSIONS LVDd (3.8-5.7cm) LA (2D) (1.9-4.0cm) Aortic Root 2.9 (2.0-3.7cm) LVDs (2.5-4.0cm) LA (MM) (1.9-4.0cm) Aortic Cusp Exc 1.6 (1.5-2.0cm) EF (%) 65.0 (55-70%) Rt. Atrium (1.9-4.0cm) Asc. Aorta cm Mitral Valve Mitral Mitral Stenosis E wave 0.49m/s MV Mean GR. mmHg A wave 0.82m/s MV Peak GR. mmHg E/A ratio 0.6 2D MVA cm2 DECEL Time 206ms PRESS 1/2 Time ms Aortic Valve Aortic Valve Aortic Stenosis V1 0.58m/s AO Mean GR. mmHg V2 1.06m/s AO Peak GR. 5mmHg LVOT Diameter 2.1 (1.8-2.4cm) Doppler SHEN 1.89cm2 Tricuspid Valve TR Velocity 2.09m/s RVSP 17mmHg Other Information Quality : Technically Limited Rhythm : Technically limited study due to body habitus.patient position. pt unable to turn or lift left arm laying flat Conclusion MILD LVH AND LV DIASTOLIC DYSFUNCTION LV EF IS 70% AORTIC SCLEROSIS NORMAL MV,TV AND PV NO EFFUSION
[2025-10-20 20:00] VITALS: PULSE 77; PULSE 79; RESP 18; O2SAT 92
[2025-10-20 21:00] VITALS: TEMP 98
[2025-10-20] MEDS: ATORVASTATIN 20 MG TAB PO SCH (22:00)
[2025-10-21] VITALS (7 sets, daily range): BP systolic 106–134; BP diastolic 70–90; PULSE 78–88; RESP 17–18; TEMP 97.2–98.5; O2SAT 91–96
[2025-10-21 05:53] LABS: Hematocrit 40.7 % (36.0-46.0); Hemoglobin 13.8 g/dL (12.2-16.2); Mean Corpuscular Hemoglobin 30.3 pg (28.0-32.0); Mean Corpuscular Volume 89.5 fL (80.0-100.0); Nucleated Red Blood Cells % 0.0 %
[2025-10-21 06:17] LABS: Alanine Aminotransferase 22 U/L (7-40); Alkaline Phosphatase 107 U/L (46-116); Anion Gap 12 (5-15); BUN/Creatinine Ratio 23.2 (10.0-20.0); Blood Urea Nitrogen 13 mg/dL (9-23); Carbon Dioxide 20 mmol/L (20-31); Potassium 3.7 mmol/L (3.5-5.1); Sodium 144 mmol/L (136-145); Total Protein 5.8 g/dL (5.7-8.2)
[2025-10-21 06:18] LABS: Albumin 3.4 g/dL (3.2-4.8); Bilirubin, Total 0.6 mg/dL (0.2-1.0); Calcium 8.4 mg/dL (8.7-10.4); Chloride 112 mmol/L (98-107); Glucose 118 mg/dL (74-106)
--- NOTE | 2025-10-21 08:36 | DVHPN2 ---
Changes from previous H/P or p: No Changes Eyes: No Pain, No Vision change, No Conjunctivae inflammation, No Eyelid inflammation, No Other, No Redness ENT: No Ear pain, No Ear discharge, No Nose pain, No Nose discharge, No Nose congestion, No Mouth pain, No Mouth swelling, No Throat pain, No Throat swelling, No Other Cardiovascular: No Chest Pain, No Palpitations, No Orthopnea, No Paroxysmal Noc. Dyspnea, No Edema, No Lt Headedness; Other (Syncope) Respiratory: No Cough, No Dry, No Shortness of breath, No SOB with excertion, No Wheezing, No Hemoptysis, No Pleuritic Pain, No Sputum, No Other Gastrointestinal: No Nausea, No Vomiting, No Abdominal Pain, No Diarrhea, No Constipation, No Melena, No Hematochezia, No Other Genitourinary: No Dysuria, No Frequency, No Incontinence, No Hematuria, No Retention, No Other Musculoskeletal: No other, No neck pain, No shoulder pain, No arm pain, No back pain, No hand pain, No leg pain, No foot pain Skin: No Rash, No Lesions, No Jaundice, No Bruising, No Other Objective Vitals Vital Signs Date Time Temp Pulse Resp B/P (MAP) Pulse Ox O2 Delivery O2 Flow Rate FiO2 10/21/25 07:40 Room Air* 0 21 10/21/25 05:00 98.0 88 18 106/70 (82) 93 98.0 Intake/Output Intake and Output 10/21/25 07:00 Intake Total 880 ml Output Total 500 ml Balance 380 ml Intake Oral 880 ml Output Urine Total 500 ml # Voids 2 Medications Current Medications Medications Dose Ordered Sig/Ryan Route Start Time Stop Time Status Last Admin Dose Admin Aspirin 81 mg DAILY PO 10/20/25 10:00 Ceftriaxone Sodium 50 ml @ 100 mls/hr DAILY@09 IV 10/20/25 09:00 Albuterol 2.5 mg Q4HPRN PRN NEB 10/20/25 05:30 Cancel Ipratropium [place] 0.5 mg Q4HPRN PRN NEB 10/20/25 05:30 Cancel Sodium Chloride 10 ml Q8HR IV 10/20/25 06:00 10/21/25 06:13 10 ML Acetaminophen/ Hydrocodone Bitart 1 tab Q4HP PRN PO 10/20/25 05:30 Ondansetron HCl 4 mg Q4HP PRN IV 10/20/25 05:30 Docusate Sodium 100 mg BIDPRN PRN PO 10/20/25 05:30 Acetaminophen 650 mg Q6HP PRN PO 10/20/25 05:30 Atorvastatin Calcium 20 mg HS PO 10/20/25 22:00 Levothyroxine Sodium 50 mcg QAM@0600 PO 10/20/25 06:00 10/21/25 06:13 50 MCG Nitroglycerin 0.4 mg Q5MINP PRN SL 10/20/25 06:00 Morphine Sulfate 2 mg Q30M PRN IV 10/20/25 06:00 Diagnostic Test (Pha) 1 strip ACHS 10/20/25 11:30 10/21/25 06:13 1 STRIP Insulin Human Regular ACHS SC 10/20/25 11:30 Dextrose 50 ml UD PRN IV 10/20/25 11:00 Laboratory Results Laboratory Tests 10/21/25 04:29 Chemistry Test 10/21/25 04:29 Albumin 3.4 g/dL (3.2-4.8) Calcium Level 8.4 mg/dL (8.7-10.4) L Total Protein 5.8 g/dL (5.7-8.2) LFT Test 10/21/25 04:29 Alanine Aminotransferase (ALT) 22 U/L (7-40) Alkaline Phosphatase 107 U/L (46-116) Aspartate Amino Transferase (AST) 23 U/L (13-40) Total Bilirubin 0.6 mg/dL (0.2-1.0) Urinalysis Test 10/20/25 10:00 Urine Color Light-yellow (Yellow) Urine Clarity Clear (Clear) Urine pH 5.5 (5.0-9.0) Urine Specific [place] 1.042 (1.001-1.035) Urine Protein Negative (Negative) Urine Ketones Negative (Negative) Urine Blood Negative /uL (Negative) Urine Nitrite Negative (Negative) Urine Bilirubin Negative (Negative) Urine Urobilinogen Normal mg/dL (Negative) Urine Leukocyte Esterase Negative /uL (Negative) Urine RBC 1 /hpf (0 - 4) Urine Microscopic WBC 1 /HPF (0-5) Urine Squamous Epithelial Cells Few /hpf (<5) Urine Bacteria None seen /hpf (None Seen) Urine Glucose Normal mg/dL (Normal) Labs and/or images reviewed: Labs reviewed by me, Image(s) reviewed by me Assessment/Plan Assessment/Plan Syncope unknown etiology: CT head without contrast negative for any acute pathology carotid ultrasound neg : Echocardiogram 70 percent ejection fraction, no aortic stenosis Type 2 diabetes: Insulin sliding scale Elevated D-dimer 5.4 PE ruled out Generalized weakness Hypertension Hypothyroidism History of stroke Time spent 55 minutes Patient is full code Plan discussed with: Patient My Orders Orders - ZAHRA KONG MD Procedure Category Date Status Time Echo 2d Mode Cardiac US 10/20/25 Resulted DOP 13:05 Carotid Duplx W Color US 10/20/25 Resulted DOP 13:[address] 10/20/25 Resulted 13:06 Cardiac DIET 10/20/25 Transmitted Diet-2gna,Lofat,Lochol Dinner Date of Service: Oct 21, 2025 Billing Provider: ZAHRA KONG MD Common Visit Codes: [id number] INP/OBS CARE(HIGH) ZAHRA KONG MD Oct 21, 2025 08:36
[2025-10-22] VITALS (11 sets, daily range): BP systolic 113–141; BP diastolic 74–93; PULSE 79–101; RESP 15–21; TEMP 96.3–98; O2SAT 90–97
--- NOTE | 2025-10-22 17:28 | DVHPN2 ---
Subjective Patient is seen in bed. Family members including granddaughters who care for her at bedside as well as nurse is at bedside. Patient on room air is mildly hypoxemic. No other complaints. Mostly staying in bed. Changes from previous H/P or p: No Changes Eyes: No Pain, No Vision change, No Conjunctivae inflammation, No Eyelid inflammation, No Other, No Redness ENT: No Ear pain, No Ear discharge, No Nose pain, No Nose discharge, No Nose congestion, No Mouth pain, No Mouth swelling, No Throat pain, No Throat swelling, No Other Cardiovascular: No Chest Pain, No Palpitations, No Orthopnea, No Paroxysmal Noc. Dyspnea, No Edema, No Lt Headedness; Other (Syncope) Respiratory: No Cough, No Dry, No Shortness of breath, No SOB with excertion, No Wheezing, No Hemoptysis, No Pleuritic Pain, No Sputum, No Other Gastrointestinal: No Nausea, No Vomiting, No Abdominal Pain, No Diarrhea, No Constipation, No Melena, No Hematochezia, No Other Genitourinary: No Dysuria, No Frequency, No Incontinence, No Hematuria, No Retention, No Other Musculoskeletal: No other, No neck pain, No shoulder pain, No arm pain, No back pain, No hand pain, No leg pain, No foot pain Skin: No Rash, No Lesions, No Jaundice, No Bruising, No Other Objective Vitals Vital Signs Date Time Temp Pulse Resp B/P (MAP) Pulse Ox O2 Delivery O2 Flow Rate FiO2 10/22/25 16:52 97.7 85 20 116/76 97 28.0 97.7 10/22/25 08:05 Room Air* 21 Intake/Output Intake and Output 10/22/25 07:00 Intake Total 850 ml Balance 850 ml Intake Oral 800 ml IV Total 50 ml # Voids 4 # Bowel Movements 1 Exam Alert awake oriented to place and person. HEENT neck supple no JVD. Heart regular rate and rhythm S1-S2. Lungs fair air movement degraded breath sounds in the bases. No wheezing or rales. Abdomen obese soft positive bowel sounds. Extremities no edema positive pulses. Medications Current Medications Medications Dose Ordered Sig/Ryan Route Start Time Stop Time Status Last Admin Dose Admin Aspirin 81 mg DAILY PO 10/20/25 10:00 10/22/25 09:10 81 MG Ceftriaxone Sodium 50 ml @ 100 mls/hr DAILY@09 IV 10/20/25 09:00 10/22/25 09:11 100 MLS/HR Albuterol 2.5 mg Q4HPRN PRN NEB 10/20/25 05:30 Cancel Ipratropium [place] 0.5 mg Q4HPRN PRN NEB 10/20/25 05:30 Cancel Sodium Chloride 10 ml Q8HR IV 10/20/25 06:00 10/22/25 13:51 10 ML Acetaminophen/ Hydrocodone Bitart 1 tab Q4HP PRN PO 10/20/25 05:30 Ondansetron HCl 4 mg Q4HP PRN IV 10/20/25 05:30 Docusate Sodium 100 mg BIDPRN PRN PO 10/20/25 05:30 Acetaminophen 650 mg Q6HP PRN PO 10/20/25 05:30 Atorvastatin Calcium 20 mg HS PO 10/20/25 22:00 10/21/25 21:10 20 MG Levothyroxine Sodium 50 mcg QAM@0600 PO 10/20/25 06:00 10/22/25 06:40 50 MCG Nitroglycerin 0.4 mg Q5MINP PRN SL 10/20/25 06:00 Morphine Sulfate 2 mg Q30M PRN IV 10/20/25 06:00 Diagnostic Test (Pha) 1 strip ACHS 10/20/25 11:30 10/22/25 16:25 1 STRIP Insulin Human Regular ACHS SC 10/20/25 11:30 10/21/25 21:25 2 UNITS Dextrose 50 ml UD PRN IV 10/20/25 11:00 Albuterol 2.5 mg Q4HPRN PRN NEB 10/22/25 16:00 Laboratory Results Laboratory Tests 10/21/25 04:29 Urinalysis Test 10/20/25 10:00 Urine Color Light-yellow (Yellow) Urine Clarity Clear (Clear) Urine pH 5.5 (5.0-9.0) Urine Specific [place] 1.042 (1.001-1.035) Urine Protein Negative (Negative) Urine Ketones Negative (Negative) Urine Blood Negative /uL (Negative) Urine Nitrite Negative (Negative) Urine Bilirubin Negative (Negative) Urine Urobilinogen Normal mg/dL (Negative) Urine Leukocyte Esterase Negative /uL (Negative) Urine RBC 1 /hpf (0 - 4) Urine Microscopic WBC 1 /HPF (0-5) Urine Squamous Epithelial Cells Few /hpf (<5) Urine Bacteria None seen /hpf (None Seen) Urine Glucose Normal mg/dL (Normal) Assessment/Plan Assessment/Plan Questionable syncope. Hypoxia secondary to atelectasis with a prolonged stay in bed. I will start her on incentive spirometry and breathing treatments as needed. Provide few L of oxygen while in bed. Out of bed ambulate with physical therapy. Follow up chest x-ray in a.m.. Otherwise continue rest of supportive care and treatment as she is on. Her further clinical management per clinical course. Discussed at length regarding patient's hospital diagnosis, imaging studies with the results, possible reason for hypoxemia such as atelectasis and treatment and care plan at length with the daughters at bedside as well as nurse at bedside. They have verbalized understanding of this and agree with the continue current care plan as outlined. Plan discussed with: Daughter My Orders Orders - MASSIEL NULL MD Procedure Category Date Status Time Incentive Spirometry ORDERS 10/22/25 Transmitted Q 1hr 15:49 Albuterol Medneb PHA 10/22/25 In Process (Ventolin Medneb) 16:00 Chest Xray 1 View XY 10/23/25 Logged 04:00 Problem List: (1) Hypoxia (2) Generalized weakness (3) Elevated d-dimer (4) Diabetes mellitus with hyperglycemia (5) Leukocytosis, unspecified (6) Syncope Date of Service: Oct 22, 2025 Billing Provider: MASSIEL NULL MD Common Visit Codes: [id number] INP/OBS CARE(HIGH) MASSIEL NULL MD Oct 22, 2025 17:28
[2025-10-22] MEDS: ALBUTEROL SULF 2.5 MG/0.5ML(0.5%) NEB SOLN NEB PRN (19:29)
[2025-10-23] VITALS (10 sets, daily range): BP systolic 120–140; BP diastolic 63–87; PULSE 71–107; RESP 14–18; TEMP 36.6; O2SAT 90–98
--- NOTE | 2025-10-23 08:07 | DVH ---
EXAM: XY CHEST XRAY 1 VIEW HISTORY: sob TECHNIQUE: 1 view of the chest COMPARISON: CT CT ANGIO CHEST CONTRAST on DOS: 10/20/25 FINDINGS/IMPRESSION: LUNGS: No pleural effusion, consolidation, or pneumothorax. MEDIASTINUM: Unremarkable. BONES: No acute osseous abnormality. OTHER: None.
[2025-10-23] MEDS ORDERED: ALBU108A5 IN (15:02)
--- NOTE | 2025-10-23 15:04 | DVHDS2 ---
Discharge Summary Date of Admission Oct 20, 2025 at 05:51 Date of Discharge: Oct 23, 2025 Labs/Diagnostic Data: Laboratory Results Test 10/23/25 11:05 10/21/25 04:29 10/20/25 10:00 10/20/25 05:06 POC Glucose 148 mg/dl (70-106) White Blood Count 6.3 10^3/uL (4.4-10.8) Red Blood Count 4.55 10^6/uL (4.0-5.20) Hemoglobin 13.8 g/dL (12.2-16.2) Hematocrit 40.7 % (36.0-46.0) Mean Corpuscular Volume 89.5 fL (80.0-100.0) Mean Corpuscular Hemoglobin 30.3 pg (28.0-32.0) Mean Corpuscular Hemoglobin Concent 33.9 g/dL (32.0-36.0) Red Cell Distribution Width 16.3 % (11.8-14.3) Platelet Count 192 10^3/uL (140-450) Mean Platelet Volume 10.3 fL (6.9-10.8) Neutrophils (%) (Auto) 74.7 % (37.0-80.0) Lymphocytes (%) (Auto) 16.6 % (10.0-50.0) Monocytes (%) (Auto) 6.8 % (0.0-12.0) Eosinophils (%) (Auto) 1.8 % (0.0-7.0) Basophils (%) (Auto) 0.1 % (0.0-2.0) Neutrophils # (Auto) 4.7 10 ^3/uL (1.6-8.6) Lymphocytes # (Auto) 1.0 10 ^3/uL (0.4-5.4) Monocytes # (Auto) 0.4 10 ^3/uL (0-1.3) Eosinophils # (Auto) 0.1 10 ^3/uL (0-0.8) Basophils # (Auto) 0 10 ^3/uL (0-0.2) Nucleated Red Blood Cells 0.0 % Sodium Level 144 mmol/L (136-145) Potassium Level 3.7 mmol/L (3.5-5.1) Chloride Level 112 mmol/L (98-107) Carbon Dioxide Level 20 mmol/L (20-31) Anion Gap 12 (5-15) Blood Urea Nitrogen 13 mg/dL (9-23) Creatinine 0.56 mg/dL (0.550-1.02) Glomerular Filtration Rate Calc 89 mL/min (>90) BUN/Creatinine Ratio 23.2 (10.0-20.0) Serum Glucose 118 mg/dL (74-106) Calcium Level 8.4 mg/dL (8.7-10.4) Total Bilirubin 0.6 mg/dL (0.2-1.0) Aspartate Amino Transferase (AST) 23 U/L (13-40) Alanine Aminotransferase (ALT) 22 U/L (7-40) Alkaline Phosphatase 107 U/L (46-116) Total Protein 5.8 g/dL (5.7-8.2) Albumin 3.4 g/dL (3.2-4.8) Urine Color Light-yellow (Yellow) Urine Clarity Clear (Clear) Urine pH 5.5 (5.0-9.0) Urine Specific [place] 1.042 (1.001-1.035) Urine Protein Negative (Negative) Urine Ketones Negative (Negative) Urine Blood Negative /uL (Negative) Urine Nitrite Negative (Negative) Urine Bilirubin Negative (Negative) Urine Urobilinogen Normal mg/dL (Negative) Urine Leukocyte Esterase Negative /uL (Negative) Urine RBC 1 /hpf (0 - 4) Urine Microscopic WBC 1 /HPF (0-5) Urine Squamous Epithelial Cells Few /hpf (<5) Urine Bacteria None seen /hpf (None Seen) Urine Glucose Normal mg/dL (Normal) Troponin I High Sensitivity 4 ng/L (</=34) Thyroid Stimulating Hormone (TSH) 5.24 uIU/mL (0.55-4.78) Test 10/20/25 04:18 10/20/25 02:04 Blood Gas Specimen Type Arterial Blood Gas Sample Site Right radial Blood Gas Patient Temperature 37.0 Arterial Blood Date Drawn [id number] Arterial Blood pH 7.443 (7.350-7.450) Arterial Blood Partial Pressure CO2 28.3 mmHg (32.0-45.0) Arterial Blood Partial Pressure O2 52.8 mmHg (83.0-108.0) Arterial Blood HCO3 18.9 mmol/L (21.0-28.0) Arterial Blood Oxygen Saturation 86.4 % (94.0-98.0) Arterial Blood Base Excess -3.7 mmol/L (-2.0-3.0) Arterial Blood Oxyhemoglobin 85.4 % (94.0-98.0) Arterial Blood Carboxyhemoglobin 0.8 % (0.5-1.5) Arterial Blood Methemoglobin 0.4 % (0.0-1.5) Arterial Blood Deoxyhemoglobin 13.4 % (0.0-5.0) Rodolfo Test Yes Blood Gas Total Hemoglobin 14.70 g/dL (12.0-16.0) Blood Gas Modality Room air Blood Gas Spontaneous Rate 18 FiO2 % 21.0 Blood Gas Critical Value Read Back yes Blood Gas Notified Whom md. france anguiano Blood Gas Notified Time [id number] Blood Gas Notified By dairy cattle farm manager tyson rehman Prothrombin Time 10.7 sec (9.3-11.8) Prothrombin Time INR 1.01 (0.9-1.15) D-Dimer, Quantitative 0.58 mg/L FEU (0.0-0.49) Hemoglobin A1c 6.0 % A1C (<5.7) B-Type Natriuretic Peptide 66.91 pg/mL (0-100) Other Laboratory Tests 10/21/25 04:29 Brief Hx & Hospital Course: The patient is a 85-year-old female with past medical history of hypothyroidism, stroke, hypertension, diabetes mellitus, and arthritis who presented to [facility] ED for evaluation of syncopal episode. As reported by granddaughter, patient filled dizziness, complaining of chest pain, generalized weakness while at [employer] party. Patient was assisted to the bathroom and witnessed passing out. When EMS arrived on the scene, patient was awake, O2 saturation was 83% and was placed on non-rebreather EN route to our facility ED. Patient was seen and evaluated in the ED, laboratory data shows WBC 12.2, platelets 219, sodium 143, potassium 4.0, BUN 22, creatinine 0.91, GFR 62, glucose 173, hemoglobin A1c 6.0, D-dimer 0.58, TSH 5.24, calcium 9.6, BNP 66.91, blood pressure 105/60, heart rate 92, temperature 97.7 F, O2 saturation 95% on oxygen. CT Angiography showed no pulmonary embolism, no acute thoracic finding. Please see medication orders section in the computer. On my assessment, patient denied chest pain, no headache, dizziness, diaphoresis, currently on oxygen, no diarrhea, nausea, vomiting, fever, no chills. Patient was admitted for further evaluation and medical management. She is admitted and underwent evaluations. Her workup in the hospitalist essentially normal. Etiology for her questionable syncope is unclear. Patient encouraged incentive spirometry and her oxygenation has improved spontaneously on room air. Her chest x-ray CT angio no acute pathology. Her labs and rest of workup in the hospitalist normal. Patient is not orthostatic. Overall patient is clinically stable. Therefore it is felt she could be safely discharged home with continued outpatient follow up with the PCP and fundraising assistant as well as neurologist for further evaluation of her symptoms. I have talked with the patient's granddaughters/daughter at bedside on multiple occasions yesterday and today along with the nurse at bedside regarding patient's hospital possible diagnosis, treatment and care plan she received, imaging study results, discharge medications and discharge instructions and follow-up plan of care at bedside. They have verbalized understanding of these and agree with the care plan as outlined. Consults/Reason for consult ORDER NUMBER(s): [id number], ACCESSION NUMBER(s): [id number] CTA Chest with intravenous contrast INDICATION: Elevated D-dimer COMPARISON: XY CHEST XRAY 1 VIEW on DOS: 10/20/25, XY CHEST TWO VIEWS ROUTINE on DOS: 12/17/24 TECHNIQUE: Multidetector spiral CTA of the chest was performed of the chest with intravenous contrast. PULMONARY ANGIOGRAPHY PROTOCOL was utilized using a bolus- tracking technique centered on the main pulmonary artery. Axial, coronal and sagittal multiplanar and MIP reformats were performed. Radiation Dose : 1. Chest: CTDI volume is 22.14 mGy. Dose-length product is 679.76 mGy*cm The dose indicators for CT are the volume Computed Tomography (CT) Dose Index (CTDIvol) and the Dose Length Product (DLP), and are measured in units of mGy and mGy-cm, respectively. These indicators are not patient dose, but values generated from the CT scanner acquisition factors. The report includes radiation exposure data for exposures received during this examination. FINDINGS: Pulmonary artery: No pulmonary embolism. Lower neck: Normal thyroid. Lungs: No focal consolidation, pleural effusion or pneumothorax. Moderate posterior bibasilar atelectasis. Heart/Vascular Structures: Normal heart size. No pericardial effusion. Atherosclerotic vascular calcifications. Lymph Nodes: No adenopathy Musculoskeletal: No acute osseous abnormality. Soft tissues: Normal. Upper abdomen: 2.3 cm calcified gallstone within the neck of the gallbladder. Limited portions of the upper abdomen are otherwise unremarkable. IMPRESSION: 1. No pulmonary embolism. 2. No acute thoracic finding. 3. Cholelithiasis. Operations or Procedures CLINICAL HISTORY: Syncope TECHNIQUE: Helical scanning was performed of the head from the skull base to the vertex. Multiplanar reconstructions were performed. This exam was performed according to our departmental dose optimization program. Up-to-date CT equipment and radiation dose reduction techniques are utilized as appropriate. CTDI 52 DLP 920 COMPARISON: None FINDINGS: There is no evidence for acute intracranial hemorrhage, acute ischemic changes, mass, mass effect, or extra-axial fluid collection. There is no hydrocephalus or midline shift. There is no effacement of the cerebral sulci and basal subarachnoid cisterns. The tan-white matter differentiation is well maintained. There is mild brain volume loss. Small old left frontal lobe infarct. Is an old small left superior cerebellar infarct. The imaged paranasal sinuses are clear. IMPRESSION: NO ACUTE INTRACRANIAL ABNORMALITY SEEN. OVED REPORT EXAM: LIMITED Two-dimensional and M-mode echocardiogram with Doppler and color Doppler. Blood Pressure: 121/76 mmHg INDICATION Syncope RISK FACTORS Obesity: Height: 5'0, Weight: 150 DIMENSIONS LVDd (3.8-5.7cm) LA (2D) (1.9-4.0cm) Aortic Root 2.9 (2.0-3.7cm) LVDs (2.5-4.0cm) LA (MM) (1.9-4.0cm) Aortic Cusp Exc 1.6 (1.5- 2.0cm) EF (%) 65.0 (55-70%) Rt. Atrium (1.9-4.0cm) Asc. Aorta cm Mitral Valve Mitral Mitral Stenosis E wave 0.49m/s MV Mean GR. mmHg A wave 0.82m/s MV Peak GR. mmHg E/A ratio 0.6 2D MVA cm2 DECEL Time 206ms PRESS 1/2 Time ms Aortic Valve Aortic Valve Aortic Stenosis V1 0.58m/s AO Mean GR. mmHg V2 1.06m/s AO Peak GR. 5mmHg LVOT Diameter 2.1 (1.8-2.4cm) Doppler SHEN 1.89cm2 Tricuspid Valve TR Velocity 2.09m/s RVSP 17mmHg Other Information Quality : Technically Limited Rhythm : Technically limited study due to body habitus.patient position. pt unable to turn or lift left arm laying flat Conclusion MILD LVH AND LV DIASTOLIC DYSFUNCTION LV EF IS 70% AORTIC SCLEROSIS NORMAL MV,TV AND PV NO EFFUSION SIGNED BY: BIJU BRIDGES MD SIGNED DATE/TIME: 10/20/251954 Condition at Discharge: Stable Final Diagnosis/Problems List Questionable syncope, hypeglycemia, dementia Discharge Disposition: Home Discharge Instruct/Medications Diet: Consistent carbohydrate, Cardiac 2g Na,low cholest Activity: No Restrictions, As Tolerated Activity comment: With a walker Follow Up/Referral: Primary care physician next week for blood pressure blood sugar checks and further management of questionable syncope with a referral to Cardiology Medications: As prescribed and home medications as you were taking Scheduled PRN Albuterol Sulfate (Albuterol Sulfate Hfa), 108 MCG IN Q4HPRN PRN Discharge Statement: "Patient was advised to return to the ER or call 911 if any headaches, dizziness, shortness of breath, chest pain, abdominal pain, bleeding, fevers, or worsening of medical condition. Patient was counseled about treatment plan, medications, possible side effects, patientverbalized understanding. All questions were answered to the best of my ability. This discharge took greater then 30 minutes in planning, reviewing documentation, counseling the patient, and discussing with other team members." ASSESSMENT ASSESSMENT Assessment Questionable syncope, hypeglycemia, dementia Date of Service: Oct 23, 2025 Billing Provider: MASSIEL NULL MD Common Visit Codes: [id number] DISCH DAY >30min MASSIEL NULL MD Oct 23, 2025 15:04
== END 2025-10-23 15:50 | disposition home or self-care (01) | DRG 48 ==
LOC: ER 01:19 → EDBD 01:19 → OVERFLOW 05:51 → TELE-WESTW 11:32
PROVIDERS: ADMIT Family Medicine; ATTEND Family Medicine
DX: G90.89 Other disorders of autonomic nervous system (principal); D72.829 Elevated white blood cell count, unspecified; E03.9 Hypothyroidism, unspecified; E11.65 Type 2 diabetes mellitus with hyperglycemia; F03.90 Unspecified dementia, unspecified severity, without behavioral disturbance, psychotic disturbance, mood disturbance, and anxiety; I10 Essential (primary) hypertension; J98.11 Atelectasis; Z86.73 Personal history of transient ischemic attack (TIA), and cerebral infarction without residual deficits; Z79.899 Other long term (current) drug therapy
CPT/HCPCS: 36415; 36600; 70450; 71045; 71275; 80048; 80053; 81001; 82805; 82962; 83036; 83880; 84443; 84484; 85025; 85379; 85610; 93306; 93886; 94640; 96360; 97110; 97116; 97163; 97530; G0378; J1815